=== PATIENT | male | born 1995 | race Caucasian/White ===

== ENCOUNTER 2018-12-04 01:47 | Emergency (ER) | payer OTHER | END 2018-12-04 02:36 | disposition other institution (70) | LOC: ED 01:47 | DX: Z02.89 Encounter for other administrative examinations (principal) ==

== ENCOUNTER 2018-12-04 01:47 | Emergency (ER) | payer MEDICAID ==
[~2018-12-04] VITALS: Ht 177.8 cm; Wt 104.3 kg
[2018-12-04 01:51] VITALS: BP 130/71; Ht 177.8 cm; Wt 104.3 kg
== END 2018-12-04 02:36 | disposition other institution (70) ==
LOC: ED 01:47
DX: Z02.89 Encounter for other administrative examinations (principal)